=== PATIENT | male | born 1970 | race Caucasian/White ===

== ENCOUNTER 2016-10-08 22:33 | Emergency (ER) | payer MEDICAID ==
[~2016-10-08] VITALS: Ht 185.4 cm; Wt 108.9 kg
[2016-10-08 22:39] VITALS: BP 130/77
== END 2016-10-08 23:44 | disposition left against medical advice (07) ==
LOC: ER 22:38
DX: Z53.21 Procedure and treatment not carried out due to patient leaving prior to being seen by health care provider (principal)
CPT/HCPCS: A4606; Z7610